=== PATIENT | male | born 1980 | race Caucasian/White ===

== ENCOUNTER → 2019-08-01 12:47 | Outpatient (CLI) | payer OTHER, SELFPAY ==
[2019-08-07 07:35] LABS: COVID19 Sendout Not Detected (Not Detected)
== END ==
PROVIDERS: PCP Family Medicine; Visit Provider Physician Assistant
DX: J06.9 Acute upper respiratory infection, unspecified (principal)
CPT/HCPCS: 87635

== ENCOUNTER 2020-02-19 02:33 | Observation (INO) | payer OTHER, SELFPAY ==
[2020-02-19] VITALS (7 sets, daily range): BP systolic 130–153; BP diastolic 61–101; PULSE 75–101; RESP 16–19; TEMP 36.6–37.1; O2SAT 96–100; BMI 50.2
--- NOTE | 2020-02-19 02:45 | PC.NURSE ---
PT Mershon pop in left groin, increased swelling and pain in area. denies any urinary difficulty or bowel difficulty.
--- NOTE | 2020-02-19 02:56 | DI.CT.S_ITS ---
PROCEDURE: CT ABDOMEN PELVIS W CON INDICATIONS: pain, swelling, redness in left lower quadrant TECHNIQUE: After the administration of intravenous contrast, 5 mm thick sections acquired from the diaphragm to the symphysis. 5 mm coronal and sagittal reformats were acquired. For radiation dose reduction, the following was used: automated exposure control, adjustment of mA and/or kV according to patient size. COMPARISON: None. FINDINGS: Image quality: Excellent. ABDOMEN: Lung bases: Lung bases are clear. Heart size is normal. Solid organs: Hypoattenuation throughout the liver. Unremarkable gallbladder, pancreas, spleen, and adrenal glands. No hydronephrosis in the kidneys. Indeterminate hypodense 1.3 cm lesion in the right interpolar kidney. Additional subcentimeter hypodensities throughout both kidneys too small to characterize further assess the disc but likely represent simple cyst. Peritoneum and bowel: Scattered colonic diverticula. Normal appendix. Nodes and vessels: No retroperitoneal or mesenteric adenopathy by size criteria. Aorta and inferior vena cava are normal in size. Miscellaneous: No ventral hernias. PELVIS: Genitourinary: Bladder wall thickness is normal. Miscellaneous: No inguinal hernias or adenopathy. Shotty lymph nodes present in the left inguinal region There is fatty stranding of the soft tissues of the left and central groin. There is also apparent thickening of the anterior tissues of the scrotum. Bones: No suspicious bony lesions. No vertebral body compression fractures. Multilevel thoracolumbar spondylosis. Degenerate changes of the hips. IMPRESSION: 1. No acute intra-abdominal abnormality. 2. Fatty stranding in the left groin an apparent soft tissue thickening of the anterior scrotum. Correlate for cellulitis. 3. Determinate 1.3 cm lesion of the right interpolar kidney. Consider nonurgent renal ultrasound for further evaluation. 4. Diffuse hypoattenuation of the liver most consistent with hepatic steatosis. Dictated by: Kashif Nettles M.D. on 02/19/2020 at 8:02 Approved by: Kashif Nettles M.D. on 02/19/2020 at 8:11
--- NOTE | 2020-02-19 02:58 | ED_ITS ---
HPI - Skin/Abscess/Foreign Bdy General Chief complaint: Urogenital-Male Stated complaint: swelling in groin area, pain to touch Time Seen by Provider: 02/19/20 02:35 Source: patient Mode of arrival: Ambulatory Limitations: no limitations History of Present Illness HPI narrative: 39-year-old male nonsmoker with history of morbid obesity, hypertension and GERD presents with a chief complaint of painful swollen, red mass in his left groin that is been gradually worsening over the past few days. He denies any obvious break in the skin or history of skin infection. He denies any significant abdominal pain. He states the pain is worse when he moves and improves with rest. He states that he felt it ?pop? a day or 2 ago and felt like liquid was spreading underneath the surface of his skin. He denies any systemic findings such as nausea, vomiting nor fever or chills. He has no trouble with bowel or bladder symptoms. He denies any drainage MD complaint: rash and abscess/boil Onset (ago): day(s) Tetanus up to date: yes Location: LLE Severity: moderate Quality: burning and aching Pain Consistency: constant Relieving factors: rest Exacerbating factors: palpation and movement Context: none Associated symptoms: denies other symptoms Treatments prior to arrival: none Related Data Home Medications Medication Instructions Recorded Confirmed aspirin #0 12/10/16 03/03/18 duloxetine [Cymbalta] 30 mg PO QDAY #0 12/10/16 03/03/18 lisinopril PO 03/03/18 03/03/18 omeprazole PO 03/03/18 03/03/18 Allergies Allergy/AdvReac Type Severity Reaction Status Date / Time No Known Drug Allergies Allergy Verified 03/03/18 15:17 Review of Systems Constitutional Constitutional: Denies chills, Denies fatigue, Denies fever(s), Denies frequent falls, Denies lethargy and Denies weakness Eyes Eyes: Denies change in vision, Denies eye discharge, Denies irritation and Denies loss of vision ENT Ears, Nose, Mouth, and Throat: Denies change in voice, Denies dizziness, Denies neck pain, Denies sore throat and Denies throat swelling Cardiovascular Cardiovascular: Denies chest pain, Denies irregular heart rhythm, Denies lightheadedness, Denies palpitations, Denies dyspnea, Denies dyspnea on exertion and Denies orthopnea Respiratory Respiratory: Denies cough, Denies dyspnea, Denies dyspnea on exertion and Denies wheezing Gastrointestinal Gastrointestinal: Denies abdominal pain, Denies change in bowel habits, Denies diarrhea, Denies nausea and Denies vomiting Musculoskeletal Musculoskeletal: Denies neck pain and Denies numbness Integumentary/Breasts Skin/Breast: Denies pruritus, Reports erythema, Denies rash, Reports skin pain, Reports skin swelling and Denies wounds Neurologic Neurologic: Denies behavioral changes, Denies confusion, Denies dizziness, Denies frequent falls, Denies loss of vision, Denies numbness and Denies weakness Psychiatric Psychiatric: Denies anxiety, Denies behavioral changes, Denies confusion, Denies depression, Denies homicidal ideation and Denies suicidal ideation Endocrine Endocrine: Denies fatigue, Denies flushing and Denies palpitations Hematologic/Lymphatic Hematologic/Lymphatic: Denies easy bruising Allergic/Immunologic Allergic/Immunologic: Denies urticaria, Denies throat swelling and Denies wheezing Patient History Social History Smoking Status: Current every day smoker Smoking Status: Current every day smoker alcohol intake frequency: holidays/special occasions only Substance Use Type: marijuana Exam Narrative Exam Narrative: GENERAL: [39] year old patient appears stated age. Morbidly obese, obviously in pain, massaging and protecting his left groin. HEAD: Atraumatic. Normocephalic. EYES: Pupils equal round and reactive. Extraocular motions intact. No scleral icterus. No injection or drainage. ENT: Nose without bleeding, purulent drainage. Throat without erythema, tonsillar hypertrophy or exudate. Airway patent. NECK: Trachea midline. Non tender CARDIOVASCULAR: Regular rate and rhythm without murmurs, gallops, or rubs. RESPIRATORY: Clear to auscultation. Breath sounds equal bilaterally. No wheezes, rales, or rhonchi. GASTROINTESTINAL: Abdomen soft, non-tender, nondistended. EXTREMITIES: No edema or joint tenderness. BACK: Nontender without deformity or crepitance. No flank tenderness. NEURO: AOx3. SKIN: [id number] region of painful, red, warm skin without drainage or fluctuance in left groin with noted induration possible small region of early skin break down Initial Vital Signs Initial Vital Signs: Vital Signs Blood Pressure 153/84 H 02/19/20 02:38 Course Orders Ordered: ED Orders 02/19/20 02:55 Basic Metabolic Panel Stat Complete Blood Count AUTO DIFF Stat Lactate (Lactic Acid) Stat 02/19/20 02:56 CT abdomen pelvis w con Stat 02/19/20 04:48 COVID19 -ED/INPAT/OR/L&D Stat Sodium Chloride (Normal Saline 0.9%) 1,000 mls @ 125 mls/hr IV CONT DERIRCK Last Infusion: 02/19/20 04:39 Dose: 0 mls/hr Documented by: Admin: 02/19/20 03:00 Dose: 125 mls/hr Documented by: JENNIFER Vancomycin HCl/Dextrose (Vancomycin) 2,000 mg in 400 mls @ 200 mls/hr IV NOW ONE Stop: 02/19/20 06:47 Discontinued Medications Ketorolac Tromethamine (Toradol) 15 mg IV NOW ONE Stop: 02/19/20 02:57 Last Admin: 02/19/20 03:04 Dose: 15 mg Documented by: JENNIFER Consultations Consultation #1: hospitalist happy to accept on her service as OBS. Consultation #2: brief discussion of case with clinical documentation clerk surgery and we share the opinion that this case is best served in the hospital as opposed to outpatient and is appropriate for medical service as surgical criteria are not present. US later today may be of use and she is happy to be involved in an official capacity should medicine decide her expertise is needed by ordering a consult should the patient not respond to ABX Vital Signs Vital signs: Vital Signs - 8 hr 02/19/20 02:38 02/19/20 02:39 02/19/20 02:40 Temperature 98.7 F Pulse Rate 99 H 101 H Respiratory Rate 19 Blood Pressure 153/84 H 153/84 H Pulse Oximetry 96 100 MDM - Skin/Abscess/Foreign Bdy Lab Data Result diagrams: 02/19/20 02:55 02/19/20 02:55 Labs: Lab Results 02/19/20 02/19/20 02/19/20 Range/Units 02:55 02:55 02:55 WBC 9.1 (4.5-11.0) X10^3/uL RBC 5.18 (4.5-5.9) X10^6/uL Hgb 15.6 (13.5-17.5) g/dL Hct 44.9 (41-53) % MCV 86.7 (80-100) fL MCH 30.2 (26-34) PG MCHC 34.8 (30-36) % RDW 13.9 (11.6-14.8) % Plt Count 219 (150-400) X10^3/uL Neut % (Auto) 62.9 (50-75) % Lymph % (Auto) 25.5 (25-40) % [place] % (Auto) 10.4 (3-14) % Eos % (Auto) 0.9 L (2-4) % Baso % (Auto) 0.3 (0-2) % Neut # (Auto) 5700 (2130-1783) /uL Lymph # (Auto) 2300 (2649-0074) /uL [place] # (Auto) 1000 H (0-900) /uL Eos # (Auto) 100 (0-450) /uL Baso # (Auto) 0 (0-100) /uL Sodium 141 (137-145) mmol/L Potassium 4.1 (3.4-5.1) mmol/L Chloride 105 (98-107) mmol/L Carbon Dioxide 25 (22-32) mmol/L BUN 18 (9-20) mg/dL Creatinine 0.73 (0.66-1.25) mg/dL Estimated GFR > 60.0 (>60) mL/min BUN/Creatinine Ratio 24.7 H (6-22) Glucose 119 H (70-100) mg/dL Lactate 1.3 (0.7-2.1) mmol/L Calcium 9.8 (8.4-10.2) mg/dL Imaging Data CT scan - abdomen/pelvis: Radiologist's Impression: 2.5 cm well-defined focal ovoid subcutaneous fluid collection left groin intertriginous region with subcutaneous ill-defined fluid attenuation and stranding. [facility] Narrative Medical decision making narrative: though patient does not currently have systemic findings and has reassuring labs, he has a large indurated/cellulitic infection of left groin with discrete fluid collection noted on CT. This abscess is currently 2.5cm and not appropriate for ring block and drainage in the ED, but is not currently a surgical case. He has multiple risk factors for complications including morbid obesity, smoking, and questionable insulin resistance. Patient requires hospitalization for IV antibiotics and may very well need surgical consultation for I&D. Discharge Plan Departure Patient Disposition: Admitted as Observation Clinical Impression: Abscess of groin, left, Cellulitis and abscess of leg Referrals: Rafi Laguerre DO [Primary Care Provider] - Admit Date/Time: 02/19/20 04:54 Admit Provider: Adri Cruz
[2020-02-19] MEDS: SODIUM CHLORIDE 0.9% 1,000 ML 125 ML IV ×3 (03:00→18:00)
[2020-02-19] MEDS: KETOROLAC 60 MG/2 ML VIAL 15 MG IV (03:04)
[2020-02-19 03:12] LABS: Add Manual Diff / Slide Review NO; Basophils Absolute Auto 0 /uL (0-100); Basophils Percent Auto 0.3 % (0-2); Eosinophils Absolute Auto 100 /uL (0-450); Eosinophils Percent Auto 0.9 % (2-4); Hematocrit 44.9 % (41-53); Hemoglobin 15.6 g/dL (13.5-17.5); Lymphocytes Absolute Auto 2300 /uL (1100-4500); Lymphocytes Percent Auto 25.5 % (25-40); Mean Corpuscular HGB Conc 34.8 % (30-36); Mean Corpuscular Hemoglobin 30.2 PG (26-34); Mean Corpuscular Volume 86.7 fL (80-100); Monocytes Absolute Auto 1000 /uL (0-900); Monocytes Percent Auto 10.4 % (3-14); Neutrophils Absolute Auto 5700 /uL (1500-7000); Neutrophils Percent Auto 62.9 % (50-75); Platelet Count 219 X10^3/uL (150-400); Red Blood Cell Count 5.18 X10^6/uL (4.5-5.9); Red Cell Distribution Width 13.9 % (11.6-14.8); White Blood Cell Count 9.1 X10^3/uL (4.5-11.0)
[2020-02-19 03:15] LABS: BUN Creatinine Ratio 24.7 (6-22); Blood Urea Nitrogen 18 mg/dL (9-20); Calcium 9.8 mg/dL (8.4-10.2); Carbon Dioxide 25 mmol/L (22-32); Chloride 105 mmol/L (98-107); Estimated Glomerular Filt Rate > 60.0 mL/min (>60); Glucose 119 mg/dL (70-100); HEMOLYSIS 25 (0-50); Lactate (Lactic Acid) 1.3 mmol/L (0.7-2.1); Potassium 4.1 mmol/L (3.4-5.1); Sodium 141 mmol/L (137-145)
[2020-02-19] MEDS: VANCOMYCIN 2,000 MG/400 ML PIGGYBACK 200 MG IV (05:02)
[2020-02-19 05:21] LABS: COVID19 -Nasal RAPID Negative (Negative)
--- NOTE | 2020-02-19 05:59 | P.HP_ITS ---
History of Present Illness History of Present Illness Date Patient Seen: 02/19/20 Time Patient Seen: 05:30 Chief complaint: swelling in groin area, pain to touch Narrative: Guanaco Guzman is a 39 y.o. morbidly obese male with hypertension and cervical radiculopathy who presents with a 2-day history of a painful lump in his left groin. He stated it felt like something popped inside and now is very painful. He denies fever, chills, abdominal pain, dysurea, diarrhea or constipation. He does have chronic bilateral knee pain for which he takes naproxin from years of heavy lifting. Denies a history of diabetes. In the ED CT scan was done and identified a 2.5 cm fluid collection in the area of cellulitis. Patient is afebrile, bp 153/84, HR 101, RR 19, oxygen saturation of 100% on room air, weight 158.7 kg with a bmi of 50.2. CBC and BMP largely within normal limits except for a non-fasting mildly elevated glucose of 119, COVID-19 is negative. ED provider discussed case with Dr. Domínguez, was not immediately deemed a surgical case based on CT scan. Patient History Medical History (Updated 02/19/20 @ 06:02 by GERALDO Seo) Essential hypertension (Chronic) Surgical History (Updated 02/19/20 @ 06:02 by GERALDO Seo) No history of previous surgery (Acute) Family & Social History Safety & Behavioral: Feels Safe in Current Yes Environment Tobacco & Substance use: Smoking Status Current every day smoker alcohol intake frequency holiday/special occasion Substance Use Type marijuana Meds Home Medications and Allergies Home Medications Medication Instructions Recorded Confirmed Type duloxetine [Cymbalta] 30 mg PO QDAY #0 12/10/16 02/19/20 History lisinopril 10 mg PO DAILY 02/19/20 02/19/20 History Allergies Allergy/AdvReac Type Severity Reaction Status Date / Time No Known Drug Allergies Allergy Verified 03/03/18 15:17 Review of Systems Review of Systems ROS: Yes All systems reviewed with the patient and are negative except as otherwise documented Exam Vital Signs (past 8 hours): - 02/19/20 02:38 02/19/20 02:39 02/19/20 02:40 Temperature 98.7 F Pulse Rate 99 H 101 H Respiratory Rate 19 Blood Pressure 153/84 H 153/84 H Pulse Oximetry 96 100 Oxygen Delivery Method Room Air Narrative Exam Narrative: Gen: Alert, oriented, morbidly obese 39 y.o. male, NAD HEENT: normocephalic, atraumatic, conjunctiva clear, sclera non-icteric, oral mucosa pink and moist Neck: supple, full ROM, no JVD, trachea is midline Resp: Lungs CTA, non-labored breathing CV: RRR, no murmur or rubs Abd: soft, non-tender, normoactive BTs Skin: Large erythematus raised lump approximately 15 X 10 cm, indurated with no visable opening, has been outlined in the left suprapubic area Neuro: Alert and oriented X 4 w/no focal deficits. Speech clear and coherent. Extremities: moves all 4 extremities, is ambulatory, negative Cameron?s sign Psyche: normal mood and affect. Objective Labs Result Diagrams: 02/19/20 02:55 02/19/20 02:55 Labs: Laboratory Results - last 24 hr 02/19/20 02/19/20 02/19/20 02:55 02:55 02:55 WBC 9.1 RBC 5.18 Hgb 15.6 Hct 44.9 MCV 86.7 MCH 30.2 MCHC 34.8 RDW 13.9 Plt Count 219 Neut % (Auto) 62.9 Lymph % (Auto) 25.5 [place] % (Auto) 10.4 Eos % (Auto) 0.9 L Baso % (Auto) 0.3 Neut # (Auto) 5700 Lymph # (Auto) 2300 [place] # (Auto) 1000 H Eos # (Auto) 100 Baso # (Auto) 0 Sodium 141 Potassium 4.1 Chloride 105 Carbon Dioxide 25 BUN 18 Creatinine 0.73 Estimated GFR > 60.0 BUN/Creatinine Ratio 24.7 H Glucose 119 H Lactate 1.3 Calcium 9.8 COVID-19 PCR 02/19/20 05:05 WBC RBC Hgb Hct MCV MCH MCHC RDW Plt Count Neut % (Auto) Lymph % (Auto) [place] % (Auto) Eos % (Auto) Baso % (Auto) Neut # (Auto) Lymph # (Auto) [place] # (Auto) Eos # (Auto) Baso # (Auto) Sodium Potassium Chloride Carbon Dioxide BUN Creatinine Estimated GFR BUN/Creatinine Ratio Glucose Lactate Calcium COVID-19 PCR Negative Assessment & Plan Assessment & Plan narrative: Guanaco Guzman will be admitted for further antibiotic treatment of a suspected abscess and cellulitis of the left lower groin. Cellulitis with suspected abscess of the left lower groin -He is initiated on IV vancomycin. -U/S of the pelvis, suprapubic area Essential hypertension, chronic -Continue home dose of lisinopril 10 mg po daily Cervical radiculopathy, chronic -Duloxetine 30 mg po daily -He takes OTC naproxen as well, will give celecoxib 100 mg po bid VTE prophylaxis: Wells risk score: 1.5 Enoxaparin 40 mg subQ daily Consults: recommend consultation w/Dr. North pending ultrasound results. Patient is observation status as his stay is not likely to exceed 2 midnights. FEN: IV saline lock, low sodium diet, BMP and magnesium in the am. Dispo: probable discharge to home Code Status: Full code as discussed with patient Scores Wells' Criteria for PE Clinical signs and symptoms of DVT: No PE is #1 Dx or equally likely: No Heart rate > 100: Yes Immobilization at least 3 days or surg in previous 4 weeks: No History of PE or DVT: No Hemoptysis: No Malignancy w/Treatment within 6 months or palliative: No Wells' PE Score total: 1.5 Quality VTE Deep Vein Thrombosis/Pulmonary Embolism Present on Admission: No
--- NOTE | 2020-02-19 06:52 | PC.NURSE ---
Addendum entered by Katie Hawkins R.N. 02/19/20 06:58: left groin very red, hot to touch and hard on palpation. Area outlined to monitor redness and expansion. Original Note: entry level marketing representative admission note: Patient brought up to 226 via wheelchair from ER at 0543. Patient VSS, on RA ambulatory. Patient AOx3. Vancomycin 2000 mg infusing via IV in left hand. Skin assessment performed with 2 RNs. Patient denying pain at this time.
[2020-02-19] MEDS: diphenhydrAMINE 50 MG/ML VIAL 25 MG IV (07:25)
[2020-02-19] MEDS: DULOXETINE 30 MG CAPSULE PO (08:47)
[2020-02-19] MEDS: ENOXAPARIN 40 MG/0.4 ML SYRINGE SUBCUT ×2 (08:47→20:35)
[2020-02-19] MEDS: lisinopriL 10 MG TABLET PO (08:47)
--- NOTE | 2020-02-19 10:09 | PM.PN.1 ---
Subjective Subjective Date Patient Seen: 02/19/20 Interval history: Brief progress note: Patient seen and examined. Patient had mild reaction to either vancomycin or iodine contrast this morning with pruritus of head and neck and mild hives on posterior neck. Benadryl 25 mg IV was given. Started ceftriaxone 2 g IV daily to treat most staph and strep organisms and will try lower dose of vancomycin at slower rate of infusion to treat MRSA this afternoon and monitor for reaction. Consulted general surgery, Dr. North, to assess area for possible incision and drainage of indurated area/small abscess. Exam Vital Signs (past 8 hours): - 02/19/20 02:38 02/19/20 02:39 02/19/20 02:40 Temperature 98.7 F Pulse Rate 99 H 101 H Respiratory Rate 19 Blood Pressure 153/84 H 153/84 H Pulse Oximetry 96 100 02/19/20 06:26 02/19/20 08:48 Temperature 97.8 F 98.4 F Pulse Rate 82 80 Respiratory Rate 18 18 Blood Pressure 144/101 H 134/61 Pulse Oximetry 96 97 Oxygen Delivery Method Room Air Oxygen Flow Rate 0 Objective Labs Result Diagrams: 02/19/20 02:55 02/19/20 02:55 Labs: Laboratory Results - last 24 hr 02/19/20 02/19/20 02/19/20 02:55 02:55 02:55 WBC 9.1 RBC 5.18 Hgb 15.6 Hct 44.9 MCV 86.7 MCH 30.2 MCHC 34.8 RDW 13.9 Plt Count 219 Neut % (Auto) 62.9 Lymph % (Auto) 25.5 [place] % (Auto) 10.4 Eos % (Auto) 0.9 L Baso % (Auto) 0.3 Neut # (Auto) 5700 Lymph # (Auto) 2300 [place] # (Auto) 1000 H Eos # (Auto) 100 Baso # (Auto) 0 Sodium 141 Potassium 4.1 Chloride 105 Carbon Dioxide 25 BUN 18 Creatinine 0.73 Estimated GFR > 60.0 BUN/Creatinine Ratio 24.7 H Glucose 119 H Lactate 1.3 Calcium 9.8 COVID-19 PCR 02/19/20 05:05 WBC RBC Hgb Hct MCV MCH MCHC RDW Plt Count Neut % (Auto) Lymph % (Auto) [place] % (Auto) Eos % (Auto) Baso % (Auto) Neut # (Auto) Lymph # (Auto) [place] # (Auto) Eos # (Auto) Baso # (Auto) Sodium Potassium Chloride Carbon Dioxide BUN Creatinine Estimated GFR BUN/Creatinine Ratio Glucose Lactate Calcium COVID-19 PCR Negative Quality VTE Deep Vein Thrombosis/Pulmonary Embolism Present on Admission: No
[2020-02-19] MEDS: CEFTRIAXONE 2 GM/50 ML FROZ.PIGGY IV (10:13)
[2020-02-19 10:53] LABS: Procalcitonin < 0.05 ng/mL (<0.5)
--- NOTE | 2020-02-19 10:59 | PC.NURSE ---
Addendum entered by Lakia Walton R.N. 02/19/20 11:52: Dr. North in and made a small incision to l.groin, he did not have any pus out of abcess. Gauze bandage with paper tape applied. Patient is resting in bed and napping. Original Note: Patient has a red, hard abcessed area to his l.groin. He is not in pain or much tenderness to palpation. He is NPO as he is going to have a surgical consult with about possible I&D today. He is up independently and is in good spirits. Patients is going to bring his cpap in, he did have some kind of reaction to either an iv vanco or possible injected iodine when having CT scan, does not think it was necessarily the Vanco. Patient developed a hive on the back of his neck, given iv benadryl and better now.
[2020-02-19] MEDS: LIDOCAINE 1% 20 ML 40 ML (11:30)
--- NOTE | 2020-02-19 12:22 | P.CONS_ITS ---
History of Present Illness Consult details Date Patient Seen: 02/19/20 Time Patient Seen: 12:22 Chief complaint: swelling in groin area, pain to touch Narrative: 39-year-old morbidly obese man admitted to the medical service for left groin cellulitis. CT abdomen pelvis that demonstrates a small fluid collection in the left groin with associated cellulitis. He is hemodynamically stable afebrile white blood cell count 9. Meds Home Medications and Allergies Home Medications Medication Instructions Recorded Confirmed Type duloxetine [Cymbalta] 30 mg PO QDAY #0 12/10/16 02/19/20 History lisinopril 10 mg PO DAILY 02/19/20 02/19/20 History Allergies Allergy/AdvReac Type Severity Reaction Status Date / Time No Known Drug Allergies Allergy Verified 03/03/18 15:17 Review of Systems Review of Systems Narrative: A 10 point review of systems is negative except as noted in the HPI Exam Vital Signs (past 8 hours): - 02/19/20 06:26 02/19/20 08:48 Temperature 97.8 F 98.4 F Pulse Rate 82 80 Respiratory Rate 18 18 Blood Pressure 144/101 H 134/61 Pulse Oximetry 96 97 Oxygen Delivery Method Room Air Oxygen Flow Rate 0 Narrative Exam Narrative: General-no acute distress, morbidly obese male HEENT-moist mucous membranes, no scleral icterus Neck-supple, no lymphadenopathy Chest- non labored respirations, clear to auscultation bilaterally Cardiac-regular rate no peripheral edema Abdomen-soft, nontender, non distended. Left groin has marked cellulitis there is a point of fluctuance and tenderness within the left groin. No active drainage Extremities-warm, well perfused Neurological-alert and oriented, no focal deficits Objective Labs Result Diagrams: 02/19/20 02:55 02/19/20 02:55 Labs: Laboratory Results - last 24 hr 02/19/20 02/19/20 02/19/20 02:55 02:55 02:55 WBC 9.1 RBC 5.18 Hgb 15.6 Hct 44.9 MCV 86.7 MCH 30.2 MCHC 34.8 RDW 13.9 Plt Count 219 Neut % (Auto) 62.9 Lymph % (Auto) 25.5 [place] % (Auto) 10.4 Eos % (Auto) 0.9 L Baso % (Auto) 0.3 Neut # (Auto) 5700 Lymph # (Auto) 2300 [place] # (Auto) 1000 H Eos # (Auto) 100 Baso # (Auto) 0 Sodium 141 Potassium 4.1 Chloride 105 Carbon Dioxide 25 BUN 18 Creatinine 0.73 Estimated GFR > 60.0 BUN/Creatinine Ratio 24.7 H Glucose 119 H Lactate 1.3 Calcium 9.8 Procalcitonin COVID-19 PCR 02/19/20 02/19/20 02:55 05:05 WBC RBC Hgb Hct MCV MCH MCHC RDW Plt Count Neut % (Auto) Lymph % (Auto) [place] % (Auto) Eos % (Auto) Baso % (Auto) Neut # (Auto) Lymph # (Auto) [place] # (Auto) Eos # (Auto) Baso # (Auto) Sodium Potassium Chloride Carbon Dioxide BUN Creatinine Estimated GFR BUN/Creatinine Ratio Glucose Lactate Calcium Procalcitonin < 0.05 COVID-19 PCR Negative Assessment & Plan Assessment & Plan narrative: 39-year-old man with fluid collection and associated cellulitis of the left groin. Verbal consent was obtained for a incision and drainage. The area was prepped and then infiltrated with 1% lidocaine. A cruciate incision was made there was some serosanguineous fluid that drained but no skylar purulence. No packing was applied a clean gauze dressing was applied. Recommend continuing with IV antibiotic therapy no acute surgical intervention required
[2020-02-19] MEDS: VANCOMYCIN 1,500 MG/300 ML FROZ.PIGGY 100 MG IV ×2 (14:02→20:33)
--- NOTE | 2020-02-19 14:44 | CM.IDA ---
Initial DCP Assessment Note Patient is a 39 yo male, resident of [place]. Patient presents w/a swelling, painful groin abscess, suspected cellulitis. PCP: Rafi Laguerre Payer: Healthcare [employer] Reviewed chart, met w/patient during multidisciplinary rounds, introduced role. Patient is indp at baseline, works, lives alone. Patient planning on returning home w/no needs from this [employer]. Later learned that Dr North at bedside this afternoon, made small incision in abscess to assess need for I+D ? No pus, appears that patient will not require surgical I+D, will likely DC home on oral abx. P: DC home expected this afternoon; will continue to follow closely in case this plan changes ISAURO Sparrow
[2020-02-20] MEDS: VANCOMYCIN 1,500 MG/300 ML FROZ.PIGGY 100 MG IV (04:32)
[2020-02-20] MEDS: SODIUM CHLORIDE 0.9% 1,000 ML 125 ML IV (04:34)
[2020-02-20] MEDS: VANCOMYCIN TROUGH 1 REQUEST MISC (04:37)
[2020-02-20 04:55] LABS: Add Manual Diff / Slide Review NO; Basophils Absolute Auto 0 /uL (0-100); Basophils Percent Auto 0.4 % (0-2); Eosinophils Absolute Auto 200 /uL (0-450); Eosinophils Percent Auto 3.6 % (2-4); Hemoglobin 14.1 g/dL (13.5-17.5); Lymphocytes Absolute Auto 1900 /uL (1100-4500); Lymphocytes Percent Auto 35.4 % (25-40); Mean Corpuscular HGB Conc 34.4 % (30-36); Mean Corpuscular Volume 87.2 fL (80-100); Monocytes Absolute Auto 600 /uL (0-900); Monocytes Percent Auto 11.8 % (3-14); Neutrophils Absolute Auto 2600 /uL (1500-7000); Neutrophils Percent Auto 48.8 % (50-75); Platelet Count 189 X10^3/uL (150-400); Red Cell Distribution Width 13.6 % (11.6-14.8); White Blood Cell Count 5.2 X10^3/uL (4.5-11.0)
[2020-02-20 04:57] LABS: BUN Creatinine Ratio 22.5 (6-22); Blood Urea Nitrogen 16 mg/dL (9-20); Calcium 8.9 mg/dL (8.4-10.2); Carbon Dioxide 29 mmol/L (22-32); Chloride 104 mmol/L (98-107); Estimated Glomerular Filt Rate > 60.0 mL/min (>60); Glucose 102 mg/dL (70-100); HEMOLYSIS 17 (0-50); Potassium 4.3 mmol/L (3.4-5.1); Sodium 137 mmol/L (137-145)
[2020-02-20 05:11] LABS: Vancomycin Trough 9.7 ug/mL (10-20)
[2020-02-20 08:00] VITALS: BP 126/66; PULSE 66; RESP 17; TEMP 36.4; O2SAT 98
[2020-02-20 08:15] LABS: Procalcitonin < 0.05 ng/mL (<0.5)
[2020-02-20] MEDS: ENOXAPARIN 40 MG/0.4 ML SYRINGE SUBCUT (08:44)
[2020-02-20] MEDS: lisinopriL 10 MG TABLET PO (08:44)
[2020-02-20] MEDS: DULOXETINE 30 MG CAPSULE PO (08:44)
[2020-02-20] MEDS: AMOXICILLIN/CLAV 875/125 MG 1 TAB PO (08:47)
[2020-02-20] MEDS: DOXYCYCLINE HYCLATE 100 MG TABLET PO (08:47)
--- NOTE | 2020-02-20 09:27 | P.DS_ITS ---
History of Present Illness History of Present Illness Date Patient Seen: 02/19/20 Chief complaint: swelling in groin area, pain to touch Narrative: Written by Adri CHOW: Guanaco Guzman is a 39 y.o. morbidly obese male with hypertension and cervical radiculopathy who presents with a 2-day history of a painful lump in his left groin. He stated it felt like something popped inside and now is very painful. He denies fever, chills, abdominal pain, dysurea, diarrhea or constipation. He does have chronic bilateral knee pain for which he takes naproxin from years of heavy lifting. Denies a history of diabetes. In the ED CT scan was done and identified a 2.5 cm fluid collection in the area of cellulitis. Patient is afebrile, bp 153/84, HR 101, RR 19, oxygen saturation of 100% on room air, weight 158.7 kg with a bmi of 50.2. CBC and BMP largely within normal limits except for a non-fasting mildly elevated glucose of 119, COVID-19 is negative. ED provider discussed case with Dr. Domínguez, was not immediately deemed a surgical case based on CT scan. Discharge Providers Provider Date of admission: 02/19/20 04:54 Discharge Date: 02/20/20 Primary care physician: Rafi Laguerre DO Consults: 02/19/20 08:52 Consult to General Surgery Routine Comment: Consulting Provider: Ramon North Reason for consultation: Left groin abscess Has provider been notified: Yes Discharge provider: Taya Brito DO Summary Hospital Course Discharge Diagnosis: 1. Acute cellulitis with suspected abscess of the left lower groin, present on admission. Resolving. 2. Hypertension, chronic, present on admission. Stable. 3. Osteoarthritis of bilateral knees and cervical radiculopathy, chronic, present on admission. Stable. 4. Morbid obesity, chronic, present on admission. Stable. Hospital Course: Guanaco Guzman is a 39-year-old morbidly obese male with hypertension, osteoarthritis of bilateral knees and cervical radiculopathy who presented to ED with a 2-day history of a painful lump in his left groin. 1. Acute cellulitis with suspected abscess of the left lower groin, present on admission. Resolving. -Likely hair follicle that got infected. -CT abdomen and pelvis with contrast demonstrated no acute intra-abdominal abnormality and fatty stranding in the left groin with apparent soft tissue thickening of the anterior scrotum consistent with celliulitis. -Consulted general surgery, Dr. North, who performed I&D (as night read of CT was abscess) without significant fluid collection discovered. Provided wound care instructions. -Received vancomycin with dosing per pharmacist to treat MRSA (lower dose give and at slower rate for possible allergic reaction after first dose was administered versus iodine contrast from CT and patient had no further reaction) and added ceftriaxone 2 g IV x 1 to treat other gram positive and negative organisms. Discharged on Augmentin twice daily and doxycycline 100 mg twice daily for 6 additional days to complete 7 days total. 2. Hypertension, chronic, present on admission. Stable. -Continue home lisinopril 10 mg daily. 3. Osteoarthritis of bilateral knees and cervical radiculopathy, chronic, present on admission. Stable. -Continue home duloxetine 30 mg daily. Patient takes naproxen as need at home and provided acetaminophen and ibuprofen as needed for pain. 4. Morbid obesity, chronic, present on admission. Stable. -BMI of 50.2. -Counseled patient on lifestyle modification including diet and exercise of which patient was well aware and is limited by arthritis on exercise. Exam Vital Signs (past 8 hours): - 02/20/20 08:00 Temperature 97.6 F Pulse Rate 66 Respiratory Rate 17 Blood Pressure 126/66 Pulse Oximetry 98 Oxygen Delivery Method Room Air Oxygen Flow Rate 0 Narrative Exam Narrative: General: Middle-aged male sitting in bedside chair and in no acute distress, well-developed, well-nourished, appropriately interactive. HEENT: Normocephalic, atraumatic. External ears without defect. Pupils equal, round, and reactive to light. Anicteric sclerae, moist conjunctivae, and no lid lag. Oropharynx free of erythema and cobble stoning with moist mucosa. Neck: Supple with full range of motion. No jugular venous distension. No bruits. No lymphadenopathy or thyromegaly. Cardiovascular: Regular rate and rhythm without murmurs, rubs, or gallops appreciated. Pulmonary: Clear to auscultation bilaterally without crackles, wheezes, or rhonchi. Normal respiratory effort with no use of accessory muscles. Abdomen: Soft, obese, nontender, nondistended. No hepatosplenomegaly or masses appreciated. Extremities: No clubbing, cyanosis, or edema. Skin: Normal temperature, turgor, and texture; no ulcers, or subcutaneous nodules appreciated. Left groin cellulitis with erythema and warmth in small triangular 3 inch area retracting within previously outlined margins with I& D site that appears to be healing. Neurological: Cranial nerves grossly intact. Psychiatric: Normal mood and affect. Alert and oriented to person, place, and time. Objective Labs Result Diagrams: 02/20/20 04:34 02/20/20 04:34 Labs: Laboratory Results - last 24 hr 02/19/20 02/19/20 02/20/20 02:55 05:57 04:34 WBC 5.2 RBC 4.70 Hgb 14.1 Hct 41.0 MCV 87.2 MCH 30.0 MCHC 34.4 RDW 13.6 Plt Count 189 Neut % (Auto) 48.8 L Lymph % (Auto) 35.4 [place] % (Auto) 11.8 Eos % (Auto) 3.6 Baso % (Auto) 0.4 Neut # (Auto) 2600 Lymph # (Auto) 1900 [place] # (Auto) 600 Eos # (Auto) 200 Baso # (Auto) 0 Sodium Potassium Chloride Carbon Dioxide BUN Creatinine Estimated GFR BUN/Creatinine Ratio Glucose Calcium Procalcitonin < 0.05 Nasal Screen MRSA (PCR) Negative for mrsa Vancomycin Trough 02/20/20 02/20/20 02/20/20 04:34 04:34 04:34 WBC RBC Hgb Hct MCV MCH MCHC RDW Plt Count Neut % (Auto) Lymph % (Auto) [place] % (Auto) Eos % (Auto) Baso % (Auto) Neut # (Auto) Lymph # (Auto) [place] # (Auto) Eos # (Auto) Baso # (Auto) Sodium 137 Potassium 4.3 Chloride 104 Carbon Dioxide 29 BUN 16 Creatinine 0.71 Estimated GFR > 60.0 BUN/Creatinine Ratio 22.5 H Glucose 102 H Calcium 8.9 Procalcitonin < 0.05 Nasal Screen MRSA (PCR) Vancomycin Trough 9.7 L Discharge Plan Discharge Plan Patient Disposition: Home Discharge comment: You are being discharged home. You have left groin cellulitis. You have been treated with IV antibiotics and have been prescribed Augmentin twice daily and doxycycline 100 mg twice daily for 6 additional days (start tonight) to complete 10 days total of antibiotic treatment. Recommend keeping groin clean and dry. You may take Tylenol and Aleve alternating and as directed on the bottle as needed for pain. Please follow-up with your primary care physician, , regarding your hospitalization. You have been provided a work excuse note. Discharge orders & Medications Prescriptions: New doxycycline hyclate 100 mg Tablet 100 mg PO BID Qty: 11 RF: 0 amoxicillin-pot clavulanate [Augmentin] 875-125 mg Tablet 1 tab PO BID Qty: 11 RF: 0 Continued duloxetine [Cymbalta] 30 MG capsule,delayed release(DR/EC) 30 mg PO QDAY Qty: 0 RF: 0 lisinopril 10 mg Tablet 10 mg PO DAILY RF: 0 Follow up/Referrals: Rafi Laguerre DO [Primary Care Provider] - 3-5 Days Diet/Activity/Treatments Diet: Low-fat, Low-sodium and Low-cholesterol Activity: Activity as tolerated Visit Report/Discharge Packet Instructions: DI for Cellulitis -- Adult, How To Perform RICE (Rest, Ice, Compress, Elevate), How to Prevent Falls, DI for Incision and Drainage of a Skin Abscess, Doxycycline, Amoxicillin Visit Report Forms: Patient Portal/API, Stroke Signs & Symptoms Discharge Data Primary Care Provider: Rafi Laguerre Attending Provider: Adri Cruz Admit Date/Time: 02/19/20 04:54 Discharges patient from system. Discharge Date/Time: 02/20/20 10:22 Quality VTE Deep Vein Thrombosis/Pulmonary Embolism Present on Admission: No
--- NOTE | 2020-02-20 10:20 | PC.NURSE ---
Day shift: Paperwork signed and all questions answered. Went over wound and dressing care with Pt. He was also supplied with gauze and tape. scripts sent to Pt's pharmacy electronic. Pt has all personal belongings. Taken to car driven by his spouse in by LAZARUS Hardin. Pt lives here in [place]. Pt did not want any Tylenol for his mild pain this AM.
== END 2020-02-20 10:22 | disposition home or self-care (01) ==
LOC: ED 04:52 → ICU 11:00 → AC 02-20 10:30
PROVIDERS: Internal Medicine; Admitting Provider Nurse Practitioner Family; Emergency Provider Emergency Medicine; PCP Family Medicine; Referring Provider Emergency Medicine; Visit Provider Nurse Practitioner Family
DX: L03.314 Cellulitis of groin (principal); I10 Essential (primary) hypertension; K21.9 Gastro-esophageal reflux disease without esophagitis; F17.210 Nicotine dependence, cigarettes, uncomplicated; E66.9 Obesity, unspecified; Z68.43 Body mass index [BMI] 50.0-59.9, adult; Z11.59 Encounter for screening for other viral diseases
CPT/HCPCS: 36415; 74177; 80048; 80202; 83605; 84145; 85025; 87635; 87797; 96361; 96365; 96366; 96367; 96372; 96375; 99225; 99284; G0378; J0696; J1200; J1650; J1885; Q9967

== ENCOUNTER 2021-11-29 19:34 | Emergency (ER) | payer OTHER, SELFPAY ==
[2020-02-19 06:22] VITALS: BMI 50.2
[2021-11-29 19:38] VITALS: BP 146/80; PULSE 75; RESP 16; TEMP 37.5; O2SAT 96; BMI 46.6
--- NOTE | 2021-11-29 21:30 | ED_ITS ---
HPI - Skin/Abscess/Foreign Bdy General Chief complaint: Skin/Abscess/Foreign Body Stated complaint: cyst in groin area Time Seen by Provider: 11/29/21 21:27 Source: patient Mode of arrival: Ambulatory Limitations: no limitations History of Present Illness HPI narrative: This is a 41-year-old male nonsmoker with a history of obesity, hypertension and GERD with complaint of a cyst in his right inguinal region that is been becoming more painful. Patient had a history in the past where he developed an abscess and required surgical drainage. Patient denies any fevers but states he is a little bit warmer than he normally is he feels cold even though his skin feels warm. He denies chest pain, shortness of breath, no cold cough or congestion. No nausea or vomiting. No diarrhea constipation. He denies any pain or swelling of the testicles. He states the lump is not in the testicular area. No issues with urination. Patient denies any history of diabetes. Related Data Home Medications Medication Instructions Recorded Confirmed duloxetine 30 mg capsule,delayed 30 mg PO QDAY ##0 12/10/16 08/08/21 release (Cymbalta) lisinopril 10 mg tablet 10 mg PO DAILY 02/19/20 03/10/20 Trazodone PO 08/08/21 08/08/21 dextroamphetamine-amphetamine 20 20 mg PO DAILY 08/08/21 08/08/21 mg tablet (Adderall) Previous Rx's Medication Instructions Recorded clindamycin HCl 300 mg capsule 300 mg PO QID #40 caps 11/29/21 (Cleocin HCl) Allergies Allergy/AdvReac Type Severity Reaction Status Date / Time No Known Drug Allergies Allergy Verified 08/08/21 18:40 Review of Systems Review of Systems ROS Unobtainable: All systems reviewed & are unremarkable except as noted in HPI and below Patient History Medical History Essential hypertension Surgical History No history of previous surgery Social History household members: significant other and family Smoking Status: Current every day smoker alcohol intake: current Smoking Status: Current every day smoker tobacco type: cigarettes alcohol intake frequency: holidays/special occasions only Substance Use Type: marijuana Exam Narrative Exam Narrative: GENERAL: Alert and oriented x three, obese male in mild distress. HEENT: Head normocephalic, atraumatic, EOMI, pupils reactive, face symmetric, moist mucous membranes NECK: Supple, full range of motion CARDIOVASCULAR: Regular rate and rhythm without murmurs, rubs or gallops. RESPIRATORY: Breath sounds equal bilaterally, no wheezes rales or rhonchi. ABDOMEN: Soft, nontender. Normoactive bowel sounds all 4 quadrants. No guarding or rebound, rigidity, no mass : No CVA tenderness. Male: normal external examination, no penile discharge or lesions, testicles non-tender, cremasteric reflex intact, no inguinal hernias noted. Patient has a 0.5 cm indurated area with no erythema that is quite tender to touch and fluctuant with no drainage or opening in the right inguinal crease. EXTREMITIES: Normal range of motion, no clubbing or edema. Neurovascularly intact NEUROLOGICAL: Cranial nerves II through XII grossly intact. Moving all extremities SKIN: Warm, dry, no petechiae, no rashes or lesions. Initial Vital Signs Initial Vital Signs: Vital Signs Temperature 99.5 F 11/29/21 19:38 Pulse Rate 75 11/29/21 19:38 Respiratory Rate 16 11/29/21 19:38 Blood Pressure 146/80 H 11/29/21 19:38 Pulse Oximetry 96 11/29/21 19:38 Oxygen Delivery Method 11/29/21 19:38 Procedures Abscess I/D I&D #1: Time of procedure: 22:24 Site: other (right inguinal crease) Side (if applicable): right Sedation/analgesia: none Local Anesthetic: lidocaine 1% and with bicarb Amount of anesthesia used (mL): 5 Technique: needle aspiration and incised with #11 blade Irrigation: No Packing used?: none Complications: other (no fluid expressed but does have x placed at site.) Course Orders Ordered: Discontinued Medications Clindamycin HCl (Clindamycin 150 Mg Capsule) 300 mg PO NOW ONE Stop: 11/29/21 22:23 Last Admin: 11/29/21 22:26 Dose: 300 mg Documented By: OCTAVIO Lidocaine/Sodium Bicarbonate (Lido 1%/Sod Bicarb 8.4% (10ml) 10 Ml Syringe) 10 ml INJ NOW ONE Stop: 11/29/21 21:48 Last Admin: 11/29/21 21:51 Dose: 10 ml Documented By: OCTAVIO Vital Signs Vital signs: Vital Signs - 8 hr 11/29/21 19:38 Temperature 99.5 F Pulse Rate 75 Respiratory Rate 16 Blood Pressure 146/80 H Pulse Oximetry 96 Oxygen Delivery Method Room Air MDM - Skin/Abscess/Foreign Bdy Lab Data Labs: Lab Results 11/29/21 Range/Units 21:40 SARS-CoV-2 (PCR) Positive H (Negative) MDM Narrative Medical decision making narrative: Patient has possible cyst versus abscess in his right groin. Patient is quite tender there is not significant erythema in the right groin/inguinal area. Patient had lidocaine injected, able to easily palpate the nodule it is much too superficial to be a lymph node. Unable to aspirate any purulent fluid and was not able to excrete any after cross keen X was placed. Discussed with patient continue with watchful waiting would put him on oral antibiotic but may possibly be assist. Patient to return for recheck in 24-48 hours. He did also incidentally test positive for COVID he is felt unwell but not had any other specific symptoms. Discharge Plan Departure Patient Disposition: Home Clinical Impression: Groin cyst, COVID-19 virus infection Instructions: DI for Skin Abscess Activity Restrictions/Additional Instructions: Follow-up in the next 24-48 hours for recheck. If you can not follow up outpatient you can return to the ER for wound recheck. Take oral antibiotics until completely gone. Prescription sent to [facility] in [place]. Wound Care: Keep wound(s) clean and dry. Wash daily with soap and water only. Do not use over the counter products (alcohol or peroxide)on the wounds unless instructed by a physician. If wound condition worsens (increased/expanding redness, developing fluid blisters, or worsening pain), either contact your doctor for an urgent re- assessment , or return to the Emergency Department. Return to the Emergency Department for any new or worsening symptoms. Return if fever greater than 100.4 Fahrenheit, increased swelling, increasing pain or worsening symptoms such as increased discharge or spreading redness. Worsening fevers, redness, warmth, drainage, spreading pain or other new or concerning symptoms. You did test positive for coronavirus today. *What to do: * per recommendations from the CDC and the [facility] Department of Health * stay home except to get medical care. Restrict activities outside your home, except for getting medical care. Do not go to work, school, or public areas. Avoid using public transportation, ride sharing, or taxis. * separate yourself from other people in your home. * call ahead before visiting your doctor * Wear a face mask * Cover your coughs and sneezes * Clean your hands often * Avoid sharing household items * Clean all high-touch services every day * Monitor your symptoms and seek prompt medical attention if your illness is worsening, particularly with difficulty in breathing. Prescriptions: New clindamycin HCl [Cleocin HCl] 300 mg capsule 300 mg PO QID Qty: 40 0RF No Action dextroamphetamine-amphetamine [Adderall] 20 mg tablet 20 mg PO DAILY Trazodone PO duloxetine [Cymbalta] 30 MG capsule,delayed release(DR/EC) 30 mg PO QDAY Qty: 0 lisinopril 10 mg Tablet 10 mg PO DAILY Referrals: Rafi Laguerre DO [Primary Care Provider] - Stand Alone Forms: Work Release Note Visit Report Forms: Patient Portal/API
[2021-11-29] MEDS: LIDO 1%/SOD BICARB 8.4% (10ML) 10 ML SYRINGE INJ (21:51)
[2021-11-29 22:00] LABS: COVID19 -Nasal RAPID POSITIVE (Negative)
[2021-11-29] MEDS: CLINDAMYCIN 150 MG CAPSULE 300 MG PO (22:26)
== END 2021-11-29 22:30 | disposition home or self-care (01) ==
PROVIDERS: Emergency Provider Emergency Medicine; PCP Family Medicine
DX: L72.9 Follicular cyst of the skin and subcutaneous tissue, unspecified (principal); U07.1 COVID-19
CPT/HCPCS: 10060; 87635; 99283; C9803

== ENCOUNTER 2023-03-13 13:50 | Emergency (ER) | payer OTHER, MEDICAID, SELFPAY ==
[2020-02-19 06:22] VITALS: BMI 50.2
[2023-03-13 13:57] VITALS: BP 185/88; PULSE 88; RESP 20; TEMP 36.6; O2SAT 98; BMI 51.6
--- NOTE | 2023-03-13 14:04 | DI.RAD.S_ITS ---
PROCEDURE: XR HAND LT MIN 3V INDICATIONS: pain related to fall TECHNIQUE: 3 views of the hand(s) acquired. COMPARISON: None. FINDINGS: Bones: No fractures or dislocations. Carpal bones are normally aligned. No suspicious bony lesions. Soft tissues: No suspicious soft tissue calcifications. IMPRESSION: No displaced fracture Dictated by: Cristóbal Man M.D. on 03/13/2023 at 14:28 Approved by: Cristóbal Man M.D. on 03/13/2023 at 14:28
--- NOTE | 2023-03-13 14:04 | DI.RAD.S_ITS ---
PROCEDURE: XR FOREARM LT 2V INDICATIONS: Pain related to fall TECHNIQUE: 2 views of the forearm were acquired. COMPARISON: None. FINDINGS: Bones: No fractures or dislocations. No suspicious bony lesions. Soft tissues: No suspicious soft tissue calcifications or masses. IMPRESSION: No displaced fracture. Dictated by: Cristóbal Man M.D. on 03/13/2023 at 14:28 Approved by: Cristóbal Man M.D. on 03/13/2023 at 14:28
--- NOTE | 2023-03-13 14:04 | DI.RAD.S_ITS ---
PROCEDURE: XR WRIST LT MIN 3V INDICATIONS: pain related to fall TECHNIQUE: 4 views of the wrist were acquired. COMPARISON: None. FINDINGS: Bones: No fractures or dislocations. No suspicious bony lesions. Scaphoid view: Unremarkable Soft tissues: No suspicious soft tissue calcifications. IMPRESSION: No displaced fracture. If there remains a high clinical suspicion, or there is anatomic snuffbox tenderness, consider splinting and repeat radiographs in 10-14 days or cross-sectional imaging. Dictated by: Cristóbal Man M.D. on 03/13/2023 at 14:29 Approved by: Cristóbal Man M.D. on 03/13/2023 at 14:29
--- NOTE | 2023-03-13 14:10 | DI.RAD.S_ITS ---
PROCEDURE: XR ELBOW LT MIN 3V INDICATIONS: fall TECHNIQUE: 3 views of the elbow were acquired. COMPARISON: None. FINDINGS: Bones: No fractures or dislocations. No suspicious bony lesions. Soft tissues: No elbow joint effusion. No suspicious soft tissue calcifications. IMPRESSION: No displaced fracture. Dictated by: Cristóbal Man M.D. on 03/13/2023 at 14:29 Approved by: Cristóbal Man M.D. on 03/13/2023 at 14:29
[2023-03-13 14:53] VITALS: BP 161/85; PULSE 85; RESP 16; O2SAT 99
--- NOTE | 2023-03-13 15:53 | ED_ITS ---
HPI - Extremity Injury (Upper) <Salo Deluca PA-C - Last Filed: 03/13/23 16:03> General Chief Complaint: Extremity Injury, Upper Stated Complaint: fell on left arm swelled up from hand to elbow Time Seen by Provider: 03/13/23 14:10 Source: patient History of Present Illness HPI narrative: 42-year-old male presented to the ED status post a mechanical fall sustained just prior to arrival. Patient states that he misjudged a step causing him to fall forward, he struck his left hand and forearm. Patient complains of pain in his left forearm. Patient denies numbness, tingling, weakness. Patient denies head strike, LOC. Related Data Home Medications Medication Instructions Recorded Confirmed duloxetine 30 mg capsule,delayed 30 mg PO QDAY ##0 12/10/16 08/08/21 release (Cymbalta) lisinopril 10 mg tablet 10 mg PO DAILY 02/19/20 03/10/20 Trazodone PO 08/08/21 08/08/21 dextroamphetamine-amphetamine 20 20 mg PO DAILY 08/08/21 08/08/21 mg tablet (Adderall) Previous Rx's Medication Instructions Recorded clindamycin HCl 300 mg capsule 300 mg PO QID #40 caps 11/29/21 (Cleocin HCl) Allergies Allergy/AdvReac Type Severity Reaction Status Date / Time No Known Drug Allergies Allergy Verified 08/08/21 18:40 Review of Systems <Salo Deluca PA-C - Last Filed: 03/13/23 16:03> Constitutional Constitutional: Denies chills, Denies fatigue, Denies fever(s), Denies frequent falls, Denies lethargy and Denies weakness Eyes Eyes: Denies change in vision, Denies eye discharge, Denies irritation and Denies loss of vision ENT Ears, Nose, Mouth, and Throat: Denies change in voice, Denies dizziness, Denies neck pain, Denies sore throat and Denies throat swelling Cardiovascular Cardiovascular: Denies chest pain, Denies irregular heart rhythm, Denies lightheadedness, Denies palpitations, Denies dyspnea, Denies dyspnea on exertion and Denies orthopnea Respiratory Respiratory: Denies cough, Denies dyspnea, Denies dyspnea on exertion and Denies wheezing Gastrointestinal Gastrointestinal: Denies abdominal pain, Denies change in bowel habits, Denies diarrhea, Denies nausea and Denies vomiting Musculoskeletal Musculoskeletal: Denies neck pain and Denies numbness Comments: Left forearm pain Integumentary/Breasts Skin/Breast: Denies pruritus, Denies erythema, Denies rash and Denies wounds Neurologic Neurologic: Denies behavioral changes, Denies confusion, Denies dizziness, Denies frequent falls, Denies loss of vision, Denies numbness and Denies weakness Psychiatric Psychiatric: Denies anxiety, Denies behavioral changes, Denies confusion, Denies depression, Denies homicidal ideation and Denies suicidal ideation Endocrine Endocrine: Denies fatigue, Denies flushing and Denies palpitations Hematologic/Lymphatic Hematologic/Lymphatic: Denies easy bruising Allergic/Immunologic Allergic/Immunologic: Denies urticaria, Denies throat swelling and Denies wheezing Patient History <Salo Deluca PA-C - Last Filed: 03/13/23 16:03> Medical History Essential hypertension Surgical History No history of previous surgery Social History household members: significant other and family Smoking Status: Current every day smoker alcohol intake: current Smoking Status: Current every day smoker tobacco type: cigarettes alcohol intake frequency: holidays/special occasions only Substance Use Type: marijuana Exam <Salo Deluca PA-C - Last Filed: 03/13/23 16:03> Narrative Exam Narrative: Const General:?cooperative, healthy appearing and comfortable [facility] Head:?normal to inspection Ears:?hearing grossly normal bilaterally Nose:?external nose normal Face and sinus:?normal facial exam and sinuses nontender Mouth:?oral mucosae normal Throat:?posterior oropharynx normal Eyes General:?appearance normal, both eyes and all related structures Neck Neck:?normal visual inspection and no lymphadenopathy noted Resp Effort & Inspection:?normal respiratory effort Auscultation:?clear to auscultation bilaterally Cardio Rate:?regular rate Rhythm:?regular rhythm Musculoskeletal There is some tenderness to palpation of the left forearm. Mild swelling. No deformities noted on exam. Strength and sensation is intact. Full range of motion. Patient is neurovascularly intact. Neuro General:?patient alert, patient awake and patient oriented x3 Initial Vital Signs Initial Vital Signs: Vital Signs Temperature 97.9 F 03/13/23 13:57 Pulse Rate 88 03/13/23 13:57 Respiratory Rate 20 03/13/23 13:57 Blood Pressure 185/88 H 03/13/23 13:57 Pulse Oximetry 98 03/13/23 13:57 Oxygen Delivery Method Room Air 03/13/23 13:57 <Jennifer Diaz DO - Last Filed: 03/17/23 00:44> Initial Vital Signs Initial Vital Signs: Vital Signs Temperature 97.9 F 03/13/23 13:57 Pulse Rate 88 03/13/23 13:57 Respiratory Rate 20 03/13/23 13:57 Blood Pressure 185/88 H 03/13/23 13:57 Pulse Oximetry 98 03/13/23 13:57 Oxygen Delivery Method Room Air 03/13/23 13:57 Course <Salo Deluca PA-C - Last Filed: 03/13/23 16:03> Orders Ordered: ED Orders 03/13/23 14:04 XR forearm LT 2V Stat XR hand LT min 3V Stat XR wrist LT min 3V Stat 03/13/23 14:10 XR elbow LT min 3V Stat Vital Signs Vital signs: Vital Signs - 8 hr 03/13/23 13:57 03/13/23 14:53 Temperature 97.9 F Pulse Rate 88 85 Respiratory Rate 20 16 Blood Pressure 185/88 H 161/85 H Pulse Oximetry 98 99 Oxygen Delivery Method Room Air Room Air <Jennifer Diaz DO - Last Filed: 03/17/23 00:44> Orders Ordered: ED Orders 03/13/23 14:04 XR forearm LT 2V Stat XR hand LT min 3V Stat XR wrist LT min 3V Stat 03/13/23 14:10 XR elbow LT min 3V Stat Vital Signs Vital signs: Vital Signs - 8 hr 03/13/23 13:57 03/13/23 14:53 Temperature 97.9 F Pulse Rate 88 85 Respiratory Rate 20 16 Blood Pressure 185/88 H 161/85 H Pulse Oximetry 98 99 Oxygen Delivery Method Room Air Room Air MDM - Extremity Injury (Upper) <SHELBIE Perez Last Filed: 03/13/23 16:03> MDM Narrative Medical decision making narrative: 42-year-old male presented to the ED status post a mechanical fall sustained just prior to arrival. Concern for fracture/dislocation versus musculoskeletal sprain/strain versus contusion vs other. Obtained x-rays which showed no acute fractures or dislocations. Discussed findings with patient. Recommend supportive measures with ice, heat packs, Tylenol, ibuprofen, naproxen. Recommend follow-up with PCP soon as possible. ED return precautions discussed with patient. Patient verbalized understanding. Medical records reviewed: Yes Discharge Plan Departure Patient Disposition: Home Clinical Impression: Arm injury Qualifiers: Encounter type: initial encounter Laterality: left Qualified Code(s): S49.92XA - Unspecified injury of left shoulder and upper arm, initial encounter Instructions: DI for Arm Pain Activity Restrictions/Additional Instructions: You were evaluated in the ED today for left arm pain following an injury. Your x-rays did not show any fractures or dislocations. Your symptoms are likely due to a contusion, musculoskeletal sprain/strain. You may take Aleve, ibuprofen or Tylenol for your symptoms. You can ice the injury for the 1st 24 hours, following which you can switch to heat packs. Please follow-up with your PCP as soon as possible. Return to the ED if you have worsening symptoms, numbness, tingling, weakness. Prescriptions: No Action dextroamphetamine-amphetamine [Adderall] 20 mg tablet 20 mg PO DAILY Trazodone PO duloxetine [Cymbalta] 30 MG capsule,delayed release(DR/EC) 30 mg PO QDAY Qty: 0 lisinopril 10 mg Tablet 10 mg PO DAILY clindamycin HCl [Cleocin HCl] 300 mg capsule 300 mg PO QID Qty: 40 0RF Referrals: Nichole Villalba PA-C [Primary Care Provider] - Stand Alone Forms: Patient Portal/API ED Sign-out <Jennifer Diaz DO - Last Filed: 03/17/23 00:44> Cosign ED Attending Cosignature Attestation: I was immediately available in the department for consultation. Documentation has been reviewed.
== END 2023-03-13 15:15 | disposition home or self-care (01) ==
PROVIDERS: Emergency Provider Student in an Organized Health Care Education/Training Program; PCP Physician Assistant
DX: S49.92XA Unspecified injury of left shoulder and upper arm, initial encounter (principal); W18.30XA Fall on same level, unspecified, initial encounter
CPT/HCPCS: 73080; 73090; 73110; 73130; 99281; 99284

== ENCOUNTER → 2024-07-24 15:14 | Outpatient (CLI) | payer OTHER, SELFPAY ==
[2020-02-19 06:22] VITALS: BMI 50.2
--- NOTE | 2024-07-24 15:17 | DI.RAD.S_ITS ---
PROCEDURE: XR LUMBAR SPINE MIN 4V INDICATIONS: Low back pain TECHNIQUE: 5 views of the lumbar spine were acquired, including bilateral oblique views. COMPARISON: None. FINDINGS: Bones: 5 nonrib-bearing vertebrae are present. There is normal bony alignment. No vertebral body compression fractures. No suspicious bony lesions. Multilevel degenerative disc disease with prominent anterior osteophytes. Lower lumbar facet arthropathy. 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 Soft tissues: Overlying bowel gas pattern is normal. No suspicious soft tissue calcifications. Oblique images: No pars defects. 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 Degenerative change. No pars defects. Comment: If suspect lumbar canal stenosis, consider lumbar spine MRI. Dictated by: Som Carter M.D. on 07/25/2024 at 13:04 Approved by: Som Carter M.D. on 07/25/2024 at 13:06
== END ==
LOC: RAD 15:16
PROVIDERS: PCP Physician Assistant; Referring Provider Nurse Practitioner Family; Visit Provider Nurse Practitioner Family
DX: M51.360 Other intervertebral disc degeneration, lumbar region with discogenic back pain only (principal); M47.816 Spondylosis without myelopathy or radiculopathy, lumbar region
CPT/HCPCS: 72110

== ENCOUNTER 2025-04-03 03:56 | Emergency (ER) | payer OTHER, SELFPAY ==
[2020-02-19 06:22] VITALS: BMI 50.2
[2025-04-03 03:58] VITALS: BP 190/114; PULSE 98; RESP 18; TEMP 35.9; O2SAT 100; BMI 48.0
--- NOTE | 2025-04-03 04:18 | ED.BACK ---
HPI - Back Pain/Injury General Chief Complaint: Back Pain/Injury Stated Complaint: Low back pain radiating Time Seen by Provider: 04/03/25 04:17 Source: patient and family History of Present Illness HPI Narrative: 45-year-old male patient with a history of hypertension, obesity and chronic back pain and problems who presents with exacerbation of his chronic back pain after coming home from work he began to have spasms in the right side of his back which became intolerable. There is some pain radiating down the right leg which he has had before. No new injury other than being up on his feet at work. Related Data Home Medications ?Medication ?Instructions ?Recorded ?Confirmed lisinopril 10 mg tablet 10 mg PO DAILY 02/19/20 03/10/20 aspirin 81 mg chewable tablet 81 mg PO DAILY 07/24/24 07/24/24 atorvastatin PO 07/24/24 diazepam PO PRN 07/24/24 hydrocodone 10 mg-acetaminophen 1 tab PO Q4-6H PRN 07/24/24 07/24/24 325 mg tablet labetalol PO 07/24/24 Previous Rx's ?Medication ?Instructions ?Recorded prednisone 20 mg tablet 40 mg (2 x 20 mg) PO DAILY #6 tabs 07/24/24 Allergies Allergy/AdvReac Type Severity Reaction Status Date / Time gabapentin AdvReac Intermediate Verified 04/03/25 03:57 iodine AdvReac Intermediate Hives Verified 04/03/25 03:57 topiramate AdvReac Intermediate Verified 04/03/25 03:57 Review of Systems Review of Systems ROS Unobtainable: All systems reviewed & are unremarkable except as noted in HPI and below Musculoskeletal Musculoskeletal: Reports as per HPI Patient History Medical History Essential hypertension Surgical History No history of previous surgery Social History household members: significant other and family alcohol intake: current Smoking Status: Current every day smoker tobacco type: cigarettes alcohol intake frequency: holidays/special occasions only Exam Narrative Exam Narrative: General: Alert and conversant. [id number] distress. Appears well nourished and well hydrated Neck: No tenderness or adenopathy. No meningismus. No JVD Lungs: Nonlabored respiration. Musculoskeletal: Tenderness in mild spasm of the right paralumbar musculature. No bony or midline tenderness. Neuro: Alert and oriented. Cranial nerves, motor, sensory and cerebellar all grossly intact. No focal deficit Skin: Warm and normal color. No rashes Psychological: Normal affect and interaction. No evidence of delusion or psychosis. Normal mood. Initial Vital Signs Initial Vital Signs: Vital Signs Temperature 96.6 F L 04/03/25 03:58 Pulse Rate 98 H 04/03/25 03:58 Respiratory Rate 18 04/03/25 03:58 Blood Pressure 190/114 H 04/03/25 03:58 Pulse Oximetry 100 04/03/25 03:58 Oxygen Delivery Method Room Air 04/03/25 03:58 Course Orders Ordered: Discontinued Medications Hydrocodone Bitart/Acetaminophen (Hydrocodone/Acet 5/325 Prepack) 1 bottle MISC DIRECTED ONE Stop: 04/03/25 05:27 Diazepam (Diazepam 10 Mg/2 Ml Syringe) 10 mg IM NOW ONE Stop: 04/03/25 04:24 Last Admin: 04/03/25 04:33 Dose: 10 mg Ketorolac Tromethamine (Ketorolac 30 Mg/Ml Vial) 30 mg IM NOW ONE Stop: 04/03/25 04:25 Last Admin: 04/03/25 04:29 Dose: Not Given Ketorolac Tromethamine (Ketorolac 30 Mg/Ml Vial) 30 mg IM NOW ONE Stop: 04/03/25 04:26 Last Admin: 04/03/25 04:29 Dose: Not Given Ketorolac Tromethamine (Ketorolac 30 Mg/Ml Vial) 60 mg IM NOW ONE Stop: 04/03/25 04:29 Last Admin: 04/03/25 04:33 Dose: 60 mg Vital Signs Vital signs: Vital Signs - 8 hr 04/03/25 03:58 Temperature 96.6 F L Pulse Rate 98 H Respiratory Rate 18 Blood Pressure 190/114 H Pulse Oximetry 100 Oxygen Delivery Method Room Air MDM - Back Pain/Injury MDM Narrative Medical decision making narrative: Modest improvement with ketorolac and diazepam injections. Patient has a exacerbation of his chronic low back pain, worse in the right with spasm and radiculopathy going down the right leg/thigh. I do not believe he needs any emergent imaging. He does have pain clinic and primary care know about his back problems and are working with him on blood pressure control and weight loss. No new injury and no findings that would suggest emergent need for MRI or neurosurgery consultation. Discharge Plan Departure Patient Disposition: Home Clinical Impression: Lumbosacral strain, Radiculopathy due to lumbar intervertebral disc disorder, Elevated blood pressure reading Instructions: Essential Hypertension, DI for Back Pain With Sciatica, DI for Back Strain or Sprain Activity Restrictions/Additional Instructions: Plan: Cold or warm packs. [id number] and prescription medicines as currently prescribed. Take-home pack of hydrocodone. Follow up closely with your provider and pain clinic for further management. Also, follow up closely with your doctor on blood pressure management Prescriptions: No Action labetalol PO atorvastatin PO aspirin 81 mg tablet,chewable 81 mg PO DAILY diazepam PO PRN hydrocodone-acetaminophen 10-325 mg tablet 1 tab PO Q4-6H PRN prednisone 20 mg tablet 40 mg PO DAILY Qty: 6 0RF lisinopril 10 mg Tablet 10 mg PO DAILY Referrals: Nichole Villalba PA-C [Primary Care Provider, Medical] Stand Alone Forms: Patient Portal/API
[2025-04-03] MEDS: KETOROLAC 30 MG/ML VIAL 60 MG IM (04:33)
[2025-04-03 05:32] VITALS: BP 147/81; PULSE 83; RESP 17; O2SAT 96
== END 2025-04-03 05:41 | disposition home or self-care (01) ==
PROVIDERS: Emergency Provider Emergency Medicine; PCP Physician Assistant
DX: S39.012A Strain of muscle, fascia and tendon of lower back, initial encounter (principal); M51.369 Other intervertebral disc degeneration, lumbar region without mention of lumbar back pain or lower extremity pain; I10 Essential (primary) hypertension; M62.830 Muscle spasm of back
CPT/HCPCS: 36415; 96372; 99283; J1885; J3360